=== PATIENT | male | born 1945 | race Caucasian/White ===

== ENCOUNTER 2017-08-08 08:45 | Day surgery (SDC) | payer OTHER, BC ==
[2017-08-06 10:44] VITALS: BMI 35.6
[2017-08-08] MEDS ORDERED: PROPOFOL 20 ML ONE ×2 (08:48)
[2017-08-08] MEDS ORDERED: MIDAZOLAM HCL 2 MG/2 ML SINGLE DOSE VIAL ONE (08:48)
[2017-08-08] MEDS ORDERED: HEPARIN NA (PORCINE) 5,000 UNITS/ML 1ML VIAL ONE (09:00)
[2017-08-08] MEDS ORDERED: ceFAZolin SODIUM 1 GM VIAL IVPB ONE (09:25)
[2017-08-08] MEDS ORDERED: ceFAZolin SODIUM 1 GM VIAL ONE (09:26)
[2017-08-08] MEDS ORDERED: LIDOCAINE HCL 1%, 10 MG/ML (20ML VIAL) INF ONE (09:27)
--- NOTE | 2017-08-08 09:56 | OP ---
Operative Note - Note: Operative Date: 08/08/17 Pre-Operative Diagnosis: RLE claudication Operation: aortogram, RLE angiogram Post-Operative Diagnosis: Same as Pre-op Surgeon: Lino Romeo Anesthesia: Fractional Estimated Blood Loss (mls): 5 Operative Report Dictated: Yes
--- NOTE | 2017-08-08 09:57 | HP ---
Admitting History and Physical - Admission Chief Complaint: RLE claudication - Advance Directives Advance Directives: Yes: Health Care Proxy - Smoking History Smoking history: Former smoker Have you smoked in the past 12 months: No If you are a former smoker, when did you quit?: 06/2016 - Alcohol/Substance Use Hx Alcohol Use: Yes (Rarely) Home Medications - Allergies Allergies/Adverse Reactions: Allergies Allergy/AdvReac Type Severity Reaction Status Date / Time No Known Allergies Allergy Verified 08/08/17 08:03 - Home Medications Home Medications: Ambulatory Orders Amlodipine Besylate 5 mg PO DAILY 05/14/17 Bystolic 10 mg PO DAILY 05/14/17 Gabapentin 300 mg PO TID 05/14/17 Glipizide Xl 10 mg PO DAILY 05/14/17 Ramipril 10 mg PO DAILY 05/14/17 Uloric - 20 mg PO DAILY 05/14/17 Atorvastatin Ca 20 mg PO DAILY 06/04/17 Cilostazol 100 mg PO DAILY 06/04/17 Tramadol HCl 50 mg PO BID 06/04/17 Cholecalciferol (Vitamin D3) [Vitamin D3 -] 1,000 unit PO DAILY 08/06/17 Clonazepam [Klonopin -] 0.5 mg PO DAILY 08/06/17 Cyanocobalamin (Vitamin B-12) [Vitamin B-12] 1,000 mcg SL DAILY 08/06/17 Paroxetine HCl [Paxil -] 10 mg PO DAILY 08/06/17 Ubidecarenone/Vit E Acetate [Co Q-10 100 mg Softgel] 1 each PO DAILY 08/06/17 Physical Examination Vital Signs: Vital Signs Temperature 98.3 F 08/08/17 08:12 Pulse Rate 52 L 08/08/17 08:12 Respiratory Rate 18 08/08/17 08:12 Blood Pressure 117/78 08/08/17 08:12 O2 Sat by Pulse Oximetry (%) 94 L 08/08/17 08:13 Constitutional: Yes: Well Nourished Eyes: Yes: WNL HENT: Yes: WNL Neck: Yes: WNL Cardiovascular: Yes: WNL Respiratory: Yes: WNL Gastrointestinal: Yes: WNL Musculoskeletal: Yes: WNL Edema: No Peripheral Pulses WNL: Yes Integumentary: Yes: WNL Neurological: Yes: WNL ...Motor Strength: WNL Psychiatric: Yes: WNL Assessment/Plan RLE claudication 1.For angiogram today
[2017-08-08] MEDS ORDERED: ONDANSETRON 4 MG/2 ML VIAL IVPUSH PRN (10:02)
[2017-08-08] MEDS ORDERED: oxyCODONE HCL 5 MG TABLET PO PRN (10:02)
[2017-08-08] MEDS ORDERED: ACETAMINOPHEN 325 MG TABLET (FP) PO PRN (10:02)
[2017-08-08] MEDS ORDERED: LACTATED RINGERS SOLUTION 1,000 ML IV SCH (10:15)
[2017-08-08 10:52] VITALS: TEMP 98
[2017-08-08 12:11] VITALS: BP 131/73; PULSE 44
--- NOTE | 2017-08-09 08:47 | OP ---
DATE OF OPERATION: 08/08/2017 PREOPERATIVE DIAGNOSIS: Right lower extremity claudication. POSTOPERATIVE DIAGNOSIS: Right lower extremity claudication. PROCEDURE: Aortogram, right lower extremity angiogram. SURGEON: Lino Alcala DO ANESTHESIA: Fractional. BLOOD LOSS: 5 mL INDICATION FOR PROCEDURE: The patient is a 72-year-old male who complains of 1-block claudication whenever he walks. He complains of pain in his right thigh, going down to his knee. 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 Patient came into ambulatory surgery. Patient was consented for the procedure, understanding all risks, benefits, and alternatives, then taken to the operating room. DESCRIPTION OF PROCEDURE: Once in the operating room, he was laid on the operative table in supine manner, and the areas of the right and left groin were prepped and draped in a sterile surgical manner. We then injected 10 mL of over the left common femoral artery. We then used our micropuncture needle and punctured the left common femoral artery. Micropuncture wire was inserted, and a traditional 5-Maori sheath was inserted. A 0.035 floppy guidewire was inserted into the aorta, followed by a Merit catheter. We then shot an aortogram via hand injection, showing that the aorta and iliac arteries were without any disease. We then used our stiff guidewire and went up and over to the right common femoral artery, and our Merit catheter was placed there. We then went ahead and shot an angiogram of the right lower extremity, angiogram of the right lower extremity showing that the common femoral artery, the profunda, and the SFA were patent. The popliteal artery was patent. Patient's most dominant vessel going down into the foot is the posterior tibial artery. The peroneal artery is patent. Anterior tibial artery was occluded. Anterior tibial artery had segmental occlusions but did go into the foot. At this point, we decided there was no intervention needed. We brought our Merit catheter up and over, and we took out our sheath from the left groin. Pressure was held for 5 minutes in the left groin, and after 5 minutes, there was no bleeding, and Dermabond was placed. The patient tolerated the procedure with no com. The patient transferred to PACU in stable condition. LINO ALCALA DO MECHANICAL FITTER/[id number]
--- NOTE | 2017-09-13 07:18 | OP ---
DATE OF OPERATION: 08/08/2017 PREOPERATIVE DIAGNOSIS: Right lower extremity claudication. POSTOPERATIVE DIAGNOSIS: Right lower extremity claudication. PROCEDURE: Aortogram, right lower extremity angiogram. SURGEON: Lino Alcala DO ANESTHESIA: Fractional. BLOOD LOSS: 5 mL. INDICATION FOR PROCEDURE: The patient is a 72-year-old male who complains of right lower extremity claudication. Patient has significant back pain as well and has spinal stenosis, but recently the pain in his right leg has been getting worse, and he does not have any palpable pulses. Patient had preoperative ultrasound done showing lots of calcifications in his right lower extremity, and it was decided that he would thus need a diagnostic angiogram. Patient was consented for the procedure, understanding all risks, benefits, alternatives, then taken to the operating room. DESCRIPTION OF PROCEDURE: Once in the operating room, he was laid on the operating table in supine manner. The area of the left and right groin was prepped and draped in a sterile surgical manner. We then went ahead and injected 10 mL of 0.5% Marcaine over the left common femoral artery. We then took our Micropuncture needle and punctured the left common femoral artery. Micropuncture wire was then inserted, and a traditional 5-British sheath was inserted. We then placed a 0.035 floppy guidewire up into the aorta, followed by an Omniflush catheter. We then shot an angiogram by hand injection showing that the aorta and the iliac arteries were without any disease. We then placed a 0.035 floppy guidewire up and over to the right common femoral artery and an Omniflush catheter followed. We then shot an angiogram of the right lower extremity showing that the common femoral artery, the profunda, and the SFA were patent. The popliteal artery was patent, and patient had 2-vessel runoff of PT and DP into the foot. There were no areas of stenosis that needed any intervention, and this proves that most of his pain that he is having in his right lower extremity is coming from his back from his stenosis. At this point we brought our Omniflush catheter up and over. We then removed our 5-British sheath and pressure was held on the left groin for 5 minutes. After there was no more bleeding, the area was wet and dried and Dermabond was placed. He tolerated the procedure with no complication. Patient transferred to PACU in stable condition. LINO ALCALA DO NP/[id number]
== END 2017-08-08 12:24 | disposition home or self-care (01) ==
LOC: JASU-SURG 08:45
PROVIDERS: ATTEND Surgery Vascular Surgery
PROC: B41DYZZ Fluoroscopy of Aorta and Bilateral Lower Extremity Arteries using Other Contrast (ICD-10-PCS; principal; 2017-08-08 09:00)
DX: I70.211 Atherosclerosis of native arteries of extremities with intermittent claudication, right leg (principal)
CPT/HCPCS: 76000-TC; 94760; J1644